=== PATIENT | female | born 1995 | race Caucasian/White ===

== ENCOUNTER 2020-01-16 20:12 | Inpatient (IN) | payer OTHER ==
[~2020-01-16] VITALS: Ht 167.6 cm; Wt 68.0 kg
[2020-01-16] MEDS ORDERED: SPRINTEC 28 DA1 EACH (20:21)
[2020-01-20] MEDS ORDERED: PEPCID AC20 MG PO (12:21)
[2020-01-20] MEDS ORDERED: MEDROL2 MG PO (12:21)
== END 2020-01-20 14:02 | disposition home or self-care (01) | DRG 866 ==
LOC: ER 20:12 → SURH 01-17 10:00
PROVIDERS: ADMIT Internal Medicine; ATTEND Internal Medicine
DX: A90 Dengue fever [classical dengue] (principal); E86.0 Dehydration; D69.6 Thrombocytopenia, unspecified; R94.5 Abnormal results of liver function studies